=== PATIENT | male | born 1985 | race Two or more races ===

== ENCOUNTER 2025-02-13 10:07 | Emergency (ER) | payer OTHER ==
[~2025-02-13] VITALS: Ht 188 cm; Wt 86.2 kg
[2025-02-13] MEDS ORDERED: DOVATO 50-3001 EACH PO (10:32)
[2025-02-13] MEDS ORDERED: LOVAZA1 GM PO (10:32)
[2025-02-13] MEDS ORDERED: KETOROLAC TROMETHAMINE 30 MG VIAL IM STA (11:22)
[2025-02-13] MEDS ORDERED: ORPHENADRINE CITRATE 30 MG/ML AMPUL IM STA (11:22)
[2025-02-13] MEDS ORDERED: KETOROLAC TROMETHAMINE 30 MG VIAL ONE (11:27)
[2025-02-13] MEDS ORDERED: ORPHENADRINE CITRATE 30 MG/ML AMPUL ONE (11:28)
[2025-02-13 12:59] LABS: URINE APPEARANCE Clear; URINE BILIRRUBIN Negative (NEGATIVE); URINE BLOOD Negative; URINE COLOR Dark Yellow; URINE GLUCOSE Negative (NEGATIVE); URINE KETONE Trace (NEGATIVE); URINE LEUKOCYTE Negative; URINE NITRATE Negative; URINE UROBILINOGEN 0.2 E.U./dl
[2025-02-13 13:01] LABS: URINE BACTERIA 24.0 uL (0.0-1933); URINE EPITHELIAL CELLS 3.2 uL (0.0-38.8); URINE RBC 10.9 uL (0.0-20.8); URINE WBC 10.4 uL (0.0-23.2)
[2025-02-13 13:05] LABS: URINE CAST 0.29 uL (0.0-1.40); URINE PROTEIN 100 (NEGATIVE)
[2025-02-13] MEDS ORDERED: FLUCONAZOLE 100 MG TABLET PO STA (14:04)
[2025-02-13 14:23] VITALS: BP 143/73; O2SAT 100
== END 2025-02-13 14:24 | disposition home or self-care (01) ==
LOC: ER 10:07
PROVIDERS: General Practice
DX: G89.11 Acute pain due to trauma (principal); M54.9 Dorsalgia, unspecified; R51.9 Headache, unspecified; Z21 Asymptomatic human immunodeficiency virus [HIV] infection status; Z91.013 Allergy to seafood; Z91.018 Allergy to other foods; W10.8XXA Fall (on) (from) other stairs and steps, initial encounter; Y93.89 Activity, other specified; Y92.89 Other specified places as the place of occurrence of the external cause

== ENCOUNTER 2025-02-16 20:28 | Emergency (ER) | payer OTHER ==
[~2025-02-16] VITALS: Ht 188 cm; Wt 86.2 kg
[~2025-02-16 20:28] MED LIST: DOVATO 50-3001 EACH PO; LOVAZA1 GM PO
[2025-02-16] MEDS ORDERED: GEMFIBROZIL600 MG PO (20:34)
[2025-02-16 21:25] LABS: BASO % 0.8 % (0.1-1.2); EOS # 0.27 (0.04-0.54); EOS % 3.1 % (0.7-7.0); LYMPH # 3.48 (1.18-3.74); LYMPH % 39.8 % (19.3-53.1); MEAN PLATELET VOLUME 9.70 fl (9.4-12.4); MONO # 0.80 (0.24-0.82); MONO % 9.1 % (4.7-12.5); NEUT # 4.12 (1.56-6.13); NEUT % 47.1 % (34.0-71.1); RED CELL DISTRIBUTION WIDTH 12.7 % (11.6-14.4)
[2025-02-16 21:56] LABS: ALT/SGPT 39.0 U/L (12-78); AST/SGOT 32.0 U/L (15-37); BILIRUBIN TOTAL 0.44 mg/dL (0.3-1.2); BUN CREA RATIO 12.0 (7.0-25.0); CREATININE SERUM 0.84 mg/dL (0.70-1.30); GFR 102.26; GLOBULINA 3.8 G/DL (2.4-3.5); GLUCOSE FASTING 111.0 mg/dL (65-100); OSMOLALITY SERUM 274.0 MOSM/KG (275-295)
[2025-02-16] MEDS ORDERED: CIPROFLOXACIN IN 5 % DEXTROSE 400 MG/200 ML PIGGYBAG IV STA (22:04)
[2025-02-16 22:05] LABS: URINE BILIRRUBIN NEGATIVE (NEGATIVE); URINE BLOOD NEGATIVE; URINE KETONE NEGATIVE (NEGATIVE); URINE LEUKOCYTE NEGATIVE; URINE NITRATE POSITIVE; URINE PROTEIN 30 (NEGATIVE); URINE UROBILINOGEN 2.0 E.U./dl
[2025-02-16 22:11] LABS: URINE COLOR ORANGE; URINE GLUCOSE 100 MG/DL (NEGATIVE)
[2025-02-16] MEDS ORDERED: CIPROFLOXACIN IN 5 % DEXTROSE 400 MG/200 ML PIGGYBAG IV ONE (22:11)
[2025-02-16 22:12] LABS: URINE APPEARANCE CLEAR; URINE BACTERIA FEW; URINE CRYSTALS NEGATIVE /HPF; URINE EPITHELIAL CELLS 0-4 /HPF; URINE MUCUS NEGATIVE; URINE RBC 0-3 /HPF; URINE WBC 0-2 /hpf
== END 2025-02-17 00:30 | disposition home or self-care (01) ==
LOC: ER 20:28
PROVIDERS: General Practice
DX: N39.0 Urinary tract infection, site not specified (principal); R30.0 Dysuria; Z91.09 Other allergy status, other than to drugs and biological substances; Z91.013 Allergy to seafood; Z91.018 Allergy to other foods